=== PATIENT | female | born 2005 ===

== ENCOUNTER 2025-01-01 16:55 | Outpatient (CLI) | payer OTHER, SELFPAY ==
[2025-01-01 10:29] LABS: Abs Immature Grans 0.02 10^3/uL (0.0-0.06); HCT 43.0 % (36.0-46.0); HGB 14.0 g/dL (11.2-15.7); Immature Grans % 0.3 %; MCH 27.5 pg (27.0-33.0); MCHC 32.6 % (32.0-36.0); MCV 85 fL (80-95); MPV 8.8 fL (8.0-11.0); Platelet Count 304 10^3/uL (130-400); RBC 5.09 10^6/uL (3.93-5.22); RDW 12.8 % (11.7-14.6); RDW-SD 39.5 fL; WBC 6.26 10^3/uL (4.4-10.8)
[2025-01-01 10:58] LABS: Hemoglobin A1C 5.3 % (<5.7)
[2025-01-01 11:12] LABS: ALT 25 U/L (14-59); AST 18 U/L (15-37); Albumin 4.2 g/dL (3.4-5.0); Alkaline Phosphatase 112 U/L (46-116); Anion Gap 8.0 mmol/L (3-11); BUN 10 mg/dL (7-18); Bilirubin, Total 0.6 mg/dL (0.2-1.0); CO2 28.0 mmol/L (21.0-32.0); Calcium 9.3 mg/dL (8.5-10.1); Chloride 104 mmol/L (98-107); Cholesterol 183 mg/dL (<200); Estimated GFR 126.90 (mL/min/1.73m2); Folate 15.6 ng/mL (8.6-20.0); Glucose 103 mg/dL (74-106); HDL Cholesterol 92 mg/dL (>or=50); Potassium 3.7 mmol/L (3.5-5.1); Sodium 140 mmol/L (136-145); Total Protein 7.5 g/dL (6.4-8.2); Vitamin B12 754 pg/mL (193-986); Vitamin D 25 Total 47 ng/mL (30-100)
[2025-01-01 11:15] LABS: Triglyceride <25 mg/dL (<150)
[2025-01-01 11:34] LABS: LDL CHOLESTEROL 81 mg/dL (<100)
== END 2025-01-01 16:56 | disposition home or self-care (01) ==
LOC: LBO 16:56
PROVIDERS: PCP Nurse Practitioner Family; Visit Provider Nurse Practitioner Family
DX: Z13.220 Encounter for screening for lipoid disorders (principal); Z13.1 Encounter for screening for diabetes mellitus; Z13.0 Encounter for screening for diseases of the blood and blood-forming organs and certain disorders involving the immune mechanism; E55.9 Vitamin D deficiency, unspecified
CPT/HCPCS: 36415; 80053; 80061; 82306; 83721; 82607; 82746; 83036; 85025